=== PATIENT | female | born 1980 | race Caucasian/White ===

== ENCOUNTER 2022-04-04 09:05 | Outpatient (CLI) | payer MEDICAID ==
[~2022-04-04 09:05] MED LIST: ALPR-624 PO
== END 2022-04-04 23:59 | disposition home or self-care (01) ==
LOC: RAD 09:05
PROVIDERS: ATTEND General Practice
DX: F11.20 Opioid dependence, uncomplicated (principal)
CPT/HCPCS: 93005

== ENCOUNTER 2022-06-15 15:39 | Outpatient (CLI) | payer MEDICAID | END 2022-06-15 23:59 | disposition home or self-care (01) | LOC: RAD 15:39 | PROVIDERS: ATTEND General Practice | DX: F11.20 Opioid dependence, uncomplicated (principal) | CPT/HCPCS: 93005 ==